=== PATIENT | female | born 2000 | race Caucasian/White ===

== ENCOUNTER 2023-12-09 11:59 | Emergency (ER) | payer OTHER ==
[2023-12-09 12:11] VITALS: RESP 18; TEMP 98.8; BMI 21.7
[2023-12-09] MEDS: SODIUM CHLORIDE 1,000 ML IV STA (13:54)
[2023-12-09 14:02] LABS: BASO % 0.3 % (0-2.0); EOS % 0.6 % (0-4.5); HEMATOCRIT 33.5 % (32.4-45.2); HEMOGLOBIN 11.3 GM/dL (10.7-15.3); LYMPH % 24.8 % (8-40); MCH 32.5 pg (25.7-33.7); MCHC 33.8 g/dl (32.0-36.0); MEAN CELL VOLUME 96.3 fl (80-96); MEAN PLT VOLUME 9.2 fl (7.5-11.1); MONO % 6.3 % (3.8-10.2); PLATELET COUNT 218 10^3/uL (134-434); RBC 3.48 M/mm3 (3.60-5.2); RDW 13.6 % (11.6-15.6); WHITE BLOOD COUNT 10.2 K/mm3 (4.0-10.0)
[2023-12-09 14:11] LABS: INR 1.02 (0.83-1.09); PROTHROMBIN TIME (PATIENT) 11.5 SEC (9.7-13.0)
[2023-12-09 14:13] LABS: ACTIVATED PTT 28.8 SECONDS (25.2-36.5)
[2023-12-09 14:14] LABS: POTASSIUM 3.7 mmol/L (3.5-5.1)
[2023-12-09 14:17] LABS: ALBUMIN 3.9 g/dl (3.4-5.0); BLOOD UREA NITROGEN 11.6 mg/dL (7-18); CALCIUM 9.2 mg/dL (8.5-10.1)
[2023-12-09 14:20] LABS: CREATININE 0.6 mg/dL (0.55-1.3); PHOSPHOROUS 3.4 mg/dL (2.5-4.9)
[2023-12-09 14:21] LABS: BILIRUBIN,TOTAL 0.4 mg/dL (0.2-1); TOT PROT 6.9 g/dl (6.4-8.2)
[2023-12-09 14:40] LABS: EPI CELLS >36 /uL (0-25.1); HYALINE CASTS 5 /uL (0-3.1); URINE APPEARANCE CLOUDY; URINE BACTERIA >9,000 /uL (0-1359); URINE BILIRUBIN NEGATIVE (NEGATIVE); URINE COLOR YELLOW; URINE GLUCOSE (UA) NEGATIVE (NEGATIVE); URINE KETONE 3+ (NEGATIVE); URINE LEUK ESTERASE 1+ (NEGATIVE); URINE NITRITE POSITIVE (NEGATIVE); URINE PROTEIN TRACE (NEGATIVE); URINE RBC 46 /uL (0-23.9); URINE WBC 98 /uL (0-25.8)
[2023-12-09] MEDS ORDERED: ONDANSETRON 4 MG/2 ML VIAL ONE (15:14)
[2023-12-09] MEDS: ONDANSETRON 4 MG/2 ML VIAL IVPUSH ONE (15:18)
[2023-12-09 17:05] VITALS: BP 115/68; PULSE 78
== END 2023-12-09 17:04 | disposition home or self-care (01) ==
LOC: JER 11:59
PROC: 3E033GC Introduction of Other Therapeutic Substance into Peripheral Vein, Percutaneous Approach (ICD-10-PCS; principal; 2023-12-09)
PROC: 3E0337Z Introduction of Electrolytic and Water Balance Substance into Peripheral Vein, Percutaneous Approach (ICD-10-PCS; 2023-12-09)
DX: O23.11 Infections of bladder in pregnancy, first trimester (principal); N30.00 Acute cystitis without hematuria; O21.9 Vomiting of pregnancy, unspecified; O99.891 Other specified diseases and conditions complicating pregnancy; R55 Syncope and collapse; R63.0 Anorexia; Z3A.11 11 weeks gestation of pregnancy; Z20.822 Contact with and (suspected) exposure to COVID-19
CPT/HCPCS: 0241U-QW; 36415; 76801-TC; 80053; 81003; 83735; 84100; 84702; 85025; 85610; 85730; 86850; 86900; 86901; 87086; 87186; 93005; 93010; 96361; 96374; 99285-25

== ENCOUNTER 2024-03-19 10:33 | Emergency (ER) | payer OTHER ==
[2024-03-19 10:39] VITALS: BP 116/78; PULSE 118; RESP 22; TEMP 98.1; BMI 22.2
[2024-03-19 11:19] LABS: BASO % 0.2 % (0-2.0); EOS % 0.9 % (0-4.5); HEMATOCRIT 36.7 % (32.4-45.2); HEMOGLOBIN 12.5 GM/dL (10.7-15.3); LYMPH % 10.2 % (8-40); MCH 33.5 pg (25.7-33.7); MEAN CELL VOLUME 98.6 fl (80-96); MEAN PLT VOLUME 8.4 fl (7.5-11.1); MONO % 5.1 % (3.8-10.2); NEUT % 83.6 % (42.8-82.8); PLATELET COUNT 208 10^3/uL (134-434); RBC 3.73 M/mm3 (3.60-5.2); RDW 13.5 % (11.6-15.6); WHITE BLOOD COUNT 9.2 K/mm3 (4.0-10.0)
[2024-03-19] MEDS ORDERED: ACETAMINOPHEN INJECTION 100 ML ONE (11:29)
[2024-03-19 11:41] LABS: BLOOD UREA NITROGEN 10.6 mg/dL (7-18); CALCIUM 9.4 mg/dL (8.5-10.1)
[2024-03-19 11:42] LABS: ALBUMIN 2.9 g/dl (3.4-5.0)
[2024-03-19 11:45] LABS: CREATININE 0.6 mg/dL (0.55-1.3)
[2024-03-19 11:46] LABS: BILIRUBIN,TOTAL 0.2 mg/dL (0.2-1); TOT PROT 6.4 g/dl (6.4-8.2)
[2024-03-19] MEDS: SODIUM CHLORIDE 0.9% 500 ML INFUS.BAG IV ONE (11:47)
[2024-03-19] MEDS: ACETAMINOPHEN 1000 MG/100 ML BAG IVPB ONE (11:48)
[2024-03-19] MEDS ORDERED: CEFTRIAXONE 1 GM/50 ML BAG ONE (12:39)
[2024-03-19] MEDS: CEFTRIAXONE 1 GM in DEXTROSE 5%-WATER - 100 ML IVPB ONE (12:49)
[2024-03-19 13:30] LABS: HIV INTERPRETATION NEGATIVE (NEGATIVE)
== END 2024-03-19 13:14 | disposition home or self-care (01) ==
LOC: JER 10:33
PROC: 3E0333Z Introduction of Anti-inflammatory into Peripheral Vein, Percutaneous Approach (ICD-10-PCS; principal; 2024-03-19)
PROC: 3E033NZ Introduction of Analgesics, Hypnotics, Sedatives into Peripheral Vein, Percutaneous Approach (ICD-10-PCS; 2024-03-19)
DX: L03.116 Cellulitis of left lower limb (principal)
CPT/HCPCS: 36415; 73610-TC-LT-FY; 73630-TC-LT; 80053; 84703; 85025; 86803; 87389; 99284-25; J0131